=== PATIENT | female | born 1990 | race Caucasian/White ===

== ENCOUNTER 2018-02-15 09:37 | Emergency (ER) | payer OTHER ==
--- NOTE | 2018-02-15 11:03 | UC ---
Minor Trauma HPI - HPI Summary HPI Summary: Pain in the left side of her ribs began 02/06/18. She didn't have a known trauma but she was moving a lot of heavy furniture and pushing and pulling on that day. She is concerned because the pain is continuing wants to be sure nothing broke. Denies shortness of breath - History of Current Complaint Chief Complaint: UCGeneralIllness Stated Complaint: LFT SIDE RIB PAIN Time Seen by Provider: 02/15/18 10:57 Hx Obtained From: Patient Hx Last Menstrual Period: pt on neuva ring, menses Q 2 mos ?: No Onset/Duration: Sudden Onset, Lasting Days - 9 Onset Of Pain: Immediate Severity Initially: Moderate Severity Currently: Moderate Mechanism Of Injury: Other - Pushing and pulling heavy furniture Aggravating Factor(s): Deep Breaths, Movement Alleviating Factor(s): Heat, OTC Meds - Allergies/Home Medications Allergies/Adverse Reactions: Allergies Allergy/AdvReac Type Severity Reaction Status Date / Time No Known Allergies Allergy Verified 02/15/18 11:01 PMH/Surg Hx/FS Hx/Imm Hx Previously Healthy: Yes - Surgical History Surgical History: Yes Surgery Procedure, Year, and Place: T&A - Family History Known Family History: Positive: None, Cardiac Disease, Diabetes Negative: Hypertension - Social History Occupation: Employed Full-time Lives: With Family Alcohol Use: Rare Substance Use Type: None Smoking Status (MU): Light Every Day Tobacco Smoker Type: Cigarettes Amount Used/How Often: 1/4-1/2 ppd Length of Time of Smoking/Using Tobacco: since age 13 Have You Smoked in the Last Year: Yes Cessation Counseling: Patient Advised to Stop Review of Systems Constitutional: Negative Skin: Negative Eyes: Negative ENT: Negative Respiratory: Negative Cardiovascular: Negative Gastrointestinal: Negative Genitourinary: Negative Motor: Negative Neurovascular: Negative Musculoskeletal: Arthralgia - Left midaxillary rib pain Neurological: Negative Psychological: Negative Is Patient Immunocompromised?: No All Other Systems Reviewed And Are Negative: Yes Physical Exam Triage Information Reviewed: Yes Appearance: Well-Appearing, No Pain Distress, Well-Nourished Vital Signs Reviewed: Yes Eye Exam: Normal Eyes: Positive: Conjunctiva Clear ENT Exam: Normal ENT: Positive: Normal ENT inspection, Hearing grossly normal, Pharynx normal. Negative: Nasal congestion, Trismus, Muffled voice, Hoarse voice Neck exam: Normal Neck: Positive: Supple, Nontender, No Lymphadenopathy Respiratory Exam: Normal Respiratory: Positive: Chest non-tender, Lungs clear, Normal breath sounds, No respiratory distress, No accessory muscle use Cardiovascular Exam: Normal Cardiovascular: Positive: RRR, No Murmur, Pulses Normal, Brisk Capillary Refill Musculoskeletal Exam: Other - Left midaxillary rib pain Musculoskeletal: Positive: Strength Intact, ROM Intact, No Edema Neurological Exam: Normal Neurological: Positive: Alert, Muscle Tone Normal Psychological Exam: Normal Skin Exam: Normal Diagnostics - Radiology No standard instances Xray Interpretation: No Acute Changes Radiology Interpretation Completed By: Radiologist Minor Trauma Course/Dx - Course Course Of Treatment: Ibuprofen and Ultram and Flexeril rest follow with PCP when necessary, nicotine cessation information - Differential Dx/Diagnosis Provider Diagnoses: Costochondritis, nicotine dependence Discharge - Sign-Out/Discharge Documenting (check all that apply): Discharge - Discharge Plan Condition: Stable Disposition: HOME Prescriptions: Cyclobenzaprine TAB* [Flexeril 10 MG TAB*] 10 mg PO TID PRN #15 tab PRN Reason: muscle spasm traMADol TAB* [Ultram*] 50 mg PO Q6HR PRN #10 tab MDD 4 PRN Reason: pain Patient Education Materials: Muscle Strain (ED), Core Strengthening Exercises ( GEN) Referrals: [facility] [Outside] - If Needed - Billing Disposition and Condition Condition: STABLE Disposition: HOME
[2018-02-15 11:08] VITALS: BP 120/79
--- NOTE | 2018-02-15 11:30 | RAD ---
HISTORY: Pain after injury, left fifth sixth rib, midaxillary COMPARISONS: None VIEWS: 3, Frontal view of the chest with frontal and oblique views of the left hemithorax FINDINGS: There is no displaced rib fracture or pneumothorax. The visualized lungs are clear. IMPRESSION: NO DISPLACED RIB FRACTURE OR PNEUMOTHORAX
== END 2018-02-15 11:51 | disposition home or self-care (01) ==
LOC: UCCORT 09:37
DX: M94.0 Chondrocostal junction syndrome [Tietze] (principal); F17.210 Nicotine dependence, cigarettes, uncomplicated
CPT/HCPCS: 99211; G0463

== ENCOUNTER 2018-08-18 17:04 | Emergency (ER) | payer OTHER ==
[2018-08-18 18:16] VITALS: BP 136/88
--- NOTE | 2018-08-18 18:37 | UC ---
Respiratory Complaint HPI - HPI Summary HPI Summary: Pt presents with c/o continued cough that began two weeks ago. Pt reports that she had URI like symptoms two weeks ago that have since resolved but has continued c/o cough that worsens with exertion and recumbent position. - History of Current Complaint Chief Complaint: UCRespiratory Stated Complaint: COUGH Time Seen by Provider: 08/18/18 18:31 Hx Obtained From: Patient Hx Last Menstrual Period: 07/28/18 ?: No Onset/Duration: Gradual Onset, Lasting Weeks, Still Present Timing: Intermittent Episodes Severity Initially: Mild Severity Currently: Mild Pain Intensity: 4 Character: Cough: Nonproductive Aggravating Factors: Exertion, Deep Breaths, Recumbent Position Alleviating Factors: Nothing Associated Signs And Symptoms: Positive: URI - Risk Factors Pulmonary Embolism Risk Factors: Smoking Cardiac Risk Factors: Smoking Pseudomonas Risk Factors: Negative Tuberculosis Risk Factors: Smoking - Allergies/Home Medications Allergies/Adverse Reactions: Allergies Allergy/AdvReac Type Severity Reaction Status Date / Time No Known Allergies Allergy Verified 08/18/18 18:16 PMH/Surg Hx/FS Hx/Imm Hx Previously Healthy: Yes - Surgical History Surgical History: Yes Surgery Procedure, Year, and Place: T&A. - Family History Known Family History: Positive: Cardiac Disease, Diabetes Negative: Hypertension - Social History Occupation: Employed Full-time Lives: With Family Alcohol Use: Rare Substance Use Type: None Smoking Status (MU): Former Smoker Type: Cigarettes Amount Used/How Often: 1/4-1/2 ppd Length of Time of Smoking/Using Tobacco: since age 13 Have You Smoked in the Last Year: Yes When Did the Patient Quit Smoking/Using Tobacco: 2017 Review of Systems Constitutional: Negative Skin: Negative Eyes: Negative ENT: Negative Respiratory: Cough Cardiovascular: Negative Gastrointestinal: Negative Genitourinary: Negative Motor: Negative Neurovascular: Negative Musculoskeletal: Negative Neurological: Negative Psychological: Negative Is Patient Immunocompromised?: No All Other Systems Reviewed And Are Negative: Yes Physical Exam Triage Information Reviewed: Yes Appearance: Well-Appearing Vital Signs: Initial Vital Signs Temp 97.8 F 08/18/18 18:12 Pulse 98 08/18/18 18:12 Resp 16 08/18/18 18:12 BP 136/88 08/18/18 18:12 Pulse Ox 100 08/18/18 18:12 Vital Signs Reviewed: Yes Eye Exam: Normal ENT Exam: Normal Dental Exam: Normal Neck exam: Normal Respiratory Exam: Normal Respiratory: Positive: Normal breath sounds Cardiovascular Exam: Normal Musculoskeletal Exam: Normal Neurological Exam: Normal Psychological Exam: Normal Skin Exam: Normal UC Diagnostic Evaluation - Laboratory O2 Sat by Pulse Oximetry: 100 Respiratory Course/Dx - Differential Dx/Diagnosis Differential Diagnosis/HQI/PQRI: Bronchitis Provider Diagnoses: post viral cough Discharge - Sign-Out/Discharge Documenting (check all that apply): Patient Departure All imaging exams completed and their final reports reviewed: No Studies - Discharge Plan Condition: Stable Disposition: HOME Prescriptions: Albuterol HFA INHALER* [Ventolin HFA Inhaler*] 1 - 2 puff INH Q6H PRN #1 mdi PRN Reason: Sob/Wheezing Benzonatate CAP* [Tessalon 100 MG CAP*] 100 mg PO Q8H PRN #30 cap PRN Reason: Cough predniSONE TAB* [Deltasone 20 MG TAB*] 20 mg PO DAILY #4 tab Patient Education Materials: Acute Cough (ED) Referrals: Erna Obrien MD [Primary Care Provider] - 5 Days - Billing Disposition and Condition Condition: STABLE Disposition: Home
== END 2018-08-18 18:44 | disposition home or self-care (01) ==
LOC: UCCORT 17:04
DX: R05 Cough (principal); Z87.891 Personal history of nicotine dependence
CPT/HCPCS: 99212; G0463

== ENCOUNTER 2018-12-11 07:29 | Emergency (ER) | payer OTHER ==
[2018-12-11 07:56] VITALS: BP 113/69
[2018-12-11 08:07] LABS: Influenza A Molecular POSITIVE (Negative)
--- NOTE | 2018-12-12 08:27 | UC ---
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 + body aches, sore throat, fever to 100.3, no GI s/s, + fatigeu, + runny nose. - History of Current Complaint Chief Complaint: UCRespiratory Stated Complaint: FLU SXS Time Seen by Provider: 12/11/18 08:13 Hx Obtained From: Patient Hx Last Menstrual Period: 11/20/18 ?: No Onset/Duration: Sudden Onset, Lasting Days - 1 day Severity Currently: Moderate Severity Initially: Moderate Pain Intensity: 3 Pain Scale Used: 0-10 Numeric Associated Signs & Symptoms: Positive: Fever, F/C, Sore Throat, Nasal Congestion Related Hx: Possible Flu/Infectious Exposure - Allergy/Home Medications Allergies/Adverse Reactions: Allergies Allergy/AdvReac Type Severity Reaction Status Date / Time No Known Allergies Allergy Verified 12/11/18 07:50 Home Medications: Home Medications Naproxen Sodium [Aleve] 440 mg PO BID PRN 12/11/18 [History Confirmed 12/11/18] Phenylephrine/Dm/Acetaminop/GG [Tylenol Cold-Flu Severe Liq] 240 ml PO Q8H PRN 12/11/18 [History Confirmed 12/11/18] PMH/Surg Hx/FS Hx/Imm Hx Previously Healthy: Yes - Surgical History Surgical History: Yes Surgery Procedure, Year, and Place: T&A. - Family History Known Family History: Positive: None, Cardiac Disease, Diabetes Negative: Hypertension - Social History Alcohol Use: Rare Substance Use Type: None Smoking Status (MU): Former Smoker Type: Cigarettes Amount Used/How Often: 1/4-1/2 ppd Length of Time of Smoking/Using Tobacco: since age 13 Have You Smoked in the Last Year: Yes When Did the Patient Quit Smoking/Using Tobacco: 2017 Review of Systems All Other Systems Reviewed And Are Negative: Yes Constitutional: Positive: Fever, Chills, Fatigue ENT: Positive: Sore Throat, Nasal Discharge, Sinus Congestion Respiratory: Positive: Cough Is Patient Immunocompromised?: No Physical Exam Triage Information Reviewed: Yes Appearance: No Pain Distress, Well-Nourished, Ill-Appearing - mild Vital Signs: Initial Vital Signs Temp 98.2 F 12/11/18 07:52 Pulse 102 12/11/18 07:52 Resp 15 12/11/18 07:52 BP 113/69 12/11/18 07:52 Pulse Ox 100 12/11/18 07:52 Vital Signs Reviewed: Yes Eyes: Positive: Conjunctiva Clear ENT: Positive: Pharyngeal erythema - minimal, TMs normal, Sinus tenderness, Uvula midline. Negative: Tonsillar swelling, Tonsillar exudate Neck: Positive: Supple, Enlarged Nodes @ - b/l submand minimal. Negative: Nuchal Rigidity Respiratory: Positive: Chest non-tender, Lungs clear, Normal breath sounds, No respiratory distress, No accessory muscle use. Negative: Crackles, Rhonchi, Stridor, Wheezing Cardiovascular: Positive: RRR, No Murmur Neurological Exam: Normal Psychological Exam: Normal Skin Exam: Normal Skin: Negative: Rashes Flu Course/Dx - Course Course Of Treatment: rapid flu +, tamiflu given, work note, conservative treatment. - Differential Dx/Diagnosis Differential Diagnosis/HQI/PQRI: Influenza Provider Diagnosis: Influenza A Discharge - Sign-Out/Discharge Documenting (check all that apply): Patient Departure All imaging exams completed and their final reports reviewed: No Studies - Discharge Plan Condition: Good Disposition: HOME Prescriptions: Oseltamivir CAP* [Tamiflu CAP*] 75 mg PO BID #10 cap Patient Education Materials: Influenza (ED) Forms: *Work Release Referrals: Erna Obrien MD [Primary Care Provider] - Additional Instructions: - Increase fluid intake - Follow up with primary physician within 5-7 days for re-evaluation - Tylenol/ Motrin as needed for pain - Over the counter medication as needed for symptoms - Go to ER with shortness of breath, chest pain, increased pain, fever > 102. - Tamilflu twice daily x 5 days to decrease symptoms. - WOrk note given - Billing Disposition and Condition Condition: GOOD Disposition: Home
== END 2018-12-11 08:39 | disposition home or self-care (01) ==
LOC: UCCORT 07:29
DX: J10.1 Influenza due to other identified influenza virus with other respiratory manifestations (principal); Z87.891 Personal history of nicotine dependence
CPT/HCPCS: 99212; G0463